=== PATIENT | female | born 2000 | race Two or more races ===

== ENCOUNTER 2024-10-13 12:43 | Emergency (ER) | payer OTHER ==
[~2024-10-13] VITALS: Ht 157.5 cm; Wt 50.8 kg
[2024-10-13 14:17] LABS: HEMATOCRIT 36.8 % (36.0-45.00); HEMOGLOBIN 12.1 g/dL (12.0-15.00); MEAN CORPUSCULAR HEMOGLOBIN 28.9 pg (27.00-32.0); MEAN CORPUSCULAR HGB CONC 32.9 g/dl (32.0-36.0); PLATELET COUNT 245 K/uL (150-450); RED BLOOD COUNT 4.18 M/uL (4.00-6.00); RED CELL DISTRIBUTION WIDTH 13.2 % (11.5-14.5)
== END 2024-10-13 15:17 | disposition home or self-care (01) ==
LOC: ER 12:45
PROVIDERS: General Practice
DX: J37.0 Chronic laryngitis (principal); Z20.822 Contact with and (suspected) exposure to COVID-19